=== PATIENT | female | born 1995 | race Two or more races ===

== ENCOUNTER 2018-03-05 19:46 | Emergency (ER) | payer SELFPAY ==
[~2018-03-05] VITALS: Ht 170.2 cm; Wt 63.5 kg
[2018-03-05 20:09] VITALS: BP 117/59
[2018-03-05] MEDS ORDERED: IBUPROFEN 600 MG TABLET. PO ONE ×2 (20:30→20:50)
--- NOTE | 2018-03-05 20:35 | PHYS DOC ---
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 Patient denies any injury and has taken no pain medications today. Patient has no known allergies and takes no medications daily patient denies any medical history. Patient rates her pain a 6 out of 10. The knee is painful with extension. Review of Systems Review of Systems Constitutional: Denies fever or chills [] Eyes: Denies change in visual acuity, redness, or eye pain [] HENT: Denies nasal congestion or sore throat [] Respiratory: Denies cough or shortness of breath [] Cardiovascular: No additional information not addressed in HPI [] GI: Denies abdominal pain, nausea, vomiting, bloody stools or diarrhea [] : Denies dysuria or hematuria [] Musculoskeletal: Denies back pain. Left knee joint pain [] Integument: Denies rash or skin lesions [] Neurologic: Denies headache, focal weakness or sensory changes [] Endocrine: Denies polyuria or polydipsia [] All other systems were reviewed and found to be within normal limits, except as documented in this note. Current Medications Current Medications Current Medications Medications (Trade) Dose Ordered Sig/[facility] Start Time Stop Time Status Last Admin Dose Admin Ibuprofen (Motrin) 600 mg STK-MED ONCE 03/05/18 20:50 03/05/18 21:48 DC Allergies Allergies Allergies Coded Allergies Type Severity Reaction Last Updated Verified No Known Drug Allergies 03/05/18 No Physical Exam Physical Exam Constitutional: Well developed, well nourished, no acute distress, non-toxic appearance. [] HENT: Normocephalic, atraumatic, bilateral external ears normal, oropharynx moist, no oral exudates, nose normal. [] Eyes: PERRLA, EOMI, conjunctiva normal, no discharge. [] Neck: Normal range of motion, no tenderness, supple, no stridor. [] Cardiovascular:Heart rate regular rhythm, no murmur [] Lungs & Thorax: Bilateral breath sounds clear to auscultation [] Abdomen: Bowel sounds normal, soft, no tenderness, no masses, no pulsatile masses. [] Skin: Warm, dry, no erythema, no rash. [] Back: No tenderness, no CVA tenderness. [] Extremities: No tenderness, no cyanosis, no clubbing, ROM intact, no edema. Left knee pain with extension. [] Neurologic: Alert and oriented X 3, normal motor function, normal sensory function, no focal deficits noted. [] Psychologic: Affect normal, judgement normal, mood normal. [] Current Patient Data Vital Signs Vital Signs Date Time Temp Pulse Resp B/P (MAP) Pulse Ox O2 Delivery O2 Flow Rate FiO2 03/05/18 20:09 97.7 60 18 99 Room Air 97.7 EKG EKG [] Radiology/Procedures Radiology/Procedures Left xray Impressions: [facility] [address] [place] [address] IMAGING REPORT Signed PATIENT: JUAN MUNOZ ACCOUNT: [id number] : 1995 LOCATION: ER AGE: 23 SEX: F EXAM STATUS: REG ER ORD. PHYSICIAN: SUKHJINDER DORSEY APRN REASON: pain PROCEDURE: KNEE LEFT 4V 4 view left knee radiographs 03/05/2018 CLINICAL HISTORY: Left knee pain for 2 months. AP, lateral, oblique and sunrise digital radiographs of the left knee were obtained. No fracture or dislocation of the left knee is seen. No significant degenerative changes are noted. There is no radiographic evidence of a joint effusion. IMPRESSION: Negative study. 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 Patient denies any injury and has taken no pain medications today. Patient has no known allergies and takes no medications daily patient denies any medical history. Patient rates her pain a 6 out of 10. The knee is painful with extension. Patient denies any injury to left knee. Left knee is not swollen and not bruised. Patient has no tenderness to the knee with palpation and there is no laxity in the knee ligaments. Pedal pulses present. Patient is ambulatory. Patient is given Ibuprofen for pain. Left knee x ray shows no acute findings. The x ray was read by Dr Whitt. Patient is given a chantal wrap in the ED and can follow up with her primary care. - Staff Physician Addendum: I was working in the ER during the course of this patient's visit. I was available for consultation as needed, but I was not directly involved in the care of this patient. [] Dragon Disclaimer Dragon Disclaimer This electronic medical record was generated, in whole or in part, using a voice recognition dictation system. Departure Departure Impression: Primary Impression: Knee strain Disposition: 01 HOME, SELF-CARE Condition: STABLE Referrals: NO PCP (PCP) Patient Instructions: Knee Pain Additional Instructions: Follow up with primary care physician. Take Ibuprofen for pain. Problem Qualifiers Primary Impression: Knee strain Encounter type: initial encounter Laterality: left Qualified Codes: S86.912A - Strain of unspecified muscle(s) and tendon(s) at lower leg level, left leg, initial encounter SUKHJINDER DORSEY APRN Mar 05, 2018 20:35 CINDY WHITT MD Mar 06, 2018 05:45
--- NOTE | 2018-03-05 21:26 | RAD ---
4 view left knee radiographs 03/05/2018 CLINICAL HISTORY: Left knee pain for 2 months. AP, lateral, oblique and sunrise digital radiographs of the left knee were obtained. No fracture or dislocation of the left knee is seen. No significant degenerative changes are noted. There is no radiographic evidence of a joint effusion. IMPRESSION: Negative study. Electronically signed by: Jose Alejandro Waite MD (03/05/2018 9:23 PM) [facility]
== END 2018-03-05 21:48 | disposition home or self-care (01) ==
LOC: ER 19:46
DX: S86.812A Strain of other muscle(s) and tendon(s) at lower leg level, left leg, initial encounter (principal); X58.XXXA Exposure to other specified factors, initial encounter; Y93.89 Activity, other specified; Y92.89 Other specified places as the place of occurrence of the external cause; Y99.0 Civilian activity done for income or pay
CPT/HCPCS: 73564; 99284